=== PATIENT | female | born 1985 | race Caucasian/White ===

== ENCOUNTER 2016-10-24 18:34 | Inpatient (IN) | payer OTHER ==
[~2016-10-24] VITALS: Ht 162.6 cm; Wt 62.2 kg
[~2016-10-24 18:34] MED LIST: APIDRA100 UNIT/1 SQ
[2016-10-24 20:43] LABS: HEMATOCRIT 30.5 % (36.0-46.0); MCH 27.4 PG (29.0-34.0); MCHC 33.1 G/DL (30.0-36.0); MCV 82.7 FL (83-99); MEAN PLAT.VOLUME 10.1 uM^3 (9.5-12.4); PLATELET COUNT 334 K/uL (156-360); RBC DIS.WIDTH-CV 12.4 % (11.8-14.6); RBC DIS.WIDTH-SD 37.4 % (39-53); RED BLOOD COUNT 3.69 M/uL (3.80-5.20); WHITE BLOOD COUNT 8.5 K/uL (4.1-10.2)
[2016-10-24 20:59] LABS: CHLORIDE 95 mEq/L (99-109); POTASSIUM 3.1 mEq/L (3.7-5.4); SODIUM 131 mEq/L (136-147)
[2016-10-24 21:00] LABS: GLUCOSE 290 mg/dL (70-99)
[2016-10-24 21:02] LABS: ANION GAP 14 MEQ/L (2-14)
[2016-10-24 21:04] LABS: GFR ESTIMATE (CALCULATED) 18 mL/min/
[2016-10-24 21:05] LABS: UREA NITROGEN (BUN) 39 mg/dL (9-23)
[2016-10-24 22:08] LABS: TOTAL BILIRUBIN 0.5 mg/dL (0.0-1.0)
[2016-10-24 22:09] LABS: ALKALINE PHOSPHATASE 302 IU/L (3-129)
[2016-10-24 22:12] LABS: DIRECT BILIRUBIN 0.2 mg/dL (0.0-0.3)
[2016-10-24] MEDS ORDERED: NOVOLIN,HU100 UNITS1 SC (22:32)
[2016-10-24] MEDS ORDERED: ZYRTEC10 M2 PO (22:33)
[2016-10-24 23:08] LABS: POINT-OF-CARE METER ID UU13113800
[2016-10-24 23:24] LABS: ADD MIUA? YES; BILIRUBIN NEGATIVE; BLOOD SMALL; COLOR STRAW ((YELLOW)); GLUCOSE (STRIP) 150; KETONES NEGATIVE; LEUKOCYTES TRACE; NITRITE NEGATIVE; PROTEIN (STRIP) 30; SPECIFIC GRAVITY 1.006 (1.000-1.030); UROBILINOGEN 0.2 MG/DL (0.2-1.0)
[2016-10-24 23:35] LABS: BACTERIA RARE /HPF; EPITHELIAL CELLS RARE /HPF; HYALINE CASTS 0-5 /LPF; MUCUS NONE SEEN /LPF; RED BLOOD CELLS 0-5 /HPF (0-5); UCUL ADDED? NO
[2016-10-25] VITALS (9 sets, daily range): BP systolic 110–212; BP diastolic 60–103
[2016-10-25 05:42] LABS: HEMATOCRIT 28.2 % (36.0-46.0); MCH 28.4 PG (29.0-34.0); MCHC 33.7 G/DL (30.0-36.0); MCV 84.4 FL (83-99); MEAN PLAT.VOLUME 10.9 uM^3 (9.5-12.4); PLATELET COUNT 271 K/uL (156-360); RBC DIS.WIDTH-CV 12.8 % (11.8-14.6); RBC DIS.WIDTH-SD 38.5 % (39-53); RED BLOOD COUNT 3.34 M/uL (3.80-5.20); WHITE BLOOD COUNT 8.3 K/uL (4.1-10.2)
[2016-10-25 06:56] LABS: ANION GAP 11 MEQ/L (2-14); CHLORIDE 99 MEQ/L (99-109); GLUCOSE 178 mg/dL (70-99); POTASSIUM 3.7 MEQ/L (3.7-5.4); SAMPLE HEMOLYSIS CHECK 2; SAMPLE ICTERIC CHECK 0; SAMPLE LIPEMIA CHECK 0; SODIUM 130 MEQ/L (136-147); UREA NITROGEN (BUN) 33 mg/dL (9-23)
[2016-10-25 06:58] LABS: GFR ESTIMATE (CALCULATED) 22 mL/min/
[2016-10-25 07:56] LABS: INTACT PARATHYROID HORMONE 8 pg/mL (10-69)
[2016-10-25 08:20] LABS: POTASSIUM 3.7 MEQ/L (3.7-5.4)
[2016-10-25 08:41] LABS: POINT-OF-CARE METER ID UU13113698; POINT-OF-CARE USER ID NUTSLF44
[2016-10-25 11:36] LABS: POINT-OF-CARE METER ID UU13113698; POINT-OF-CARE USER ID NUTSLF44
[2016-10-25 13:03] LABS: C3 COMPLEMENT 181 MG/DL (58-170); C4 COMPLEMENT 40 MG/DL (10-40)
[2016-10-25 13:09] LABS: HIV INDEX 0.15; HIV-1/2 AB/AG COMBO Nonreactive; HPCA INDEX 0.15
[2016-10-25 13:22] LABS: ANTI-HEPATITIS A VIRUS (IGM) Nonreactive; HAV INDEX 0.13; HPCA INDEX 0.15
[2016-10-25 13:23] LABS: ANTI-HEPATITIS B CORE (IGM) Nonreactive; HBC IgM INDEX 0.11
[2016-10-25 15:20] LABS: URINE TOTAL PROTEIN 15 MG/DL (0-10)
[2016-10-25 15:59] LABS: COMMENT (LAB VIEW ONLY) ND; UR CALCIUM CONCENTRATION ND MG/DL; URINE CHEM COMMENT ND
[2016-10-25 17:20] LABS: Estimated Average Glucose 246 mg/dL (70-123); HEMOGLOBIN A1c (GLYCOHEMOGLOB) 10.2 % HGB (Below 5.7)
[2016-10-25 18:35] LABS: POINT-OF-CARE USER ID NUTSLF44
[2016-10-26 03:17] VITALS: BP 127/67
[2016-10-26 05:02] LABS: BASOPHIL COUNT 0.1 K/uL (0-0.1); EOSINOPHIL (%) 3.5 % (0-5); EOSINOPHIL COUNT 0.3 K/uL (0-0.3); HEMATOCRIT 26.5 % (36.0-46.0); IMMATURE GRANULOCYTE (%) 0.7 % (0.0-0.7); IMMATURE GRANULOCYTE COUNT 0.1 K/uL; LYMPHOCYTE COUNT 0.9 K/uL (1.0-2.8); MCH 27.7 PG (29.0-34.0); MCHC 32.5 G/DL (30.0-36.0); MCV 85.2 FL (83-99); MEAN PLAT.VOLUME 10.5 uM^3 (9.5-12.4); MONOCYTE (%) 5.5 % (3-12); MONOCYTE COUNT 0.4 K/uL (0-0.8); NEUTROPHIL (%) 78.1 % (45-76); PLATELET COUNT 290 K/uL (156-360); RBC DIS.WIDTH-SD 39.8 % (39-53); RED BLOOD COUNT 3.11 M/uL (3.80-5.20); WHITE BLOOD COUNT 7.7 K/uL (4.1-10.2)
[2016-10-26 05:58] LABS: ALKALINE PHOSPHATASE 240 IU/L (3-129); ANION GAP 14 MEQ/L (2-14); CHLORIDE 102 MEQ/L (99-109); GFR ESTIMATE (CALCULATED) 26 mL/min/; IRON 17 MCG/DL (35-150); SAMPLE HEMOLYSIS CHECK 0; SAMPLE ICTERIC CHECK 0; SAMPLE LIPEMIA CHECK 0; SODIUM 134 MEQ/L (136-147); TOTAL BILIRUBIN 0.6 MG/DL (0.0-1.0); UREA NITROGEN (BUN) 29 mg/dL (9-23)
[2016-10-26 06:01] LABS: GLUCOSE 424 mg/dL (70-99)
[2016-10-26 06:54] VITALS: BP 136/68
[2016-10-26 07:38] LABS: URIC ACID 9.2 mg/dL (3.1-9.2)
[2016-10-26 10:58] LABS: UR CALCIUM CONCENTRATION 11.8 MG/DL
[2016-10-26 11:03] LABS: UR CREATININE CONCENTRATION 33.8 MG/DL
[2016-10-26 11:19] LABS: POINT-OF-CARE METER ID UU13113781
[2016-10-26 12:19] VITALS: BP 121/70
[2016-10-26 12:23] LABS: FERRITIN 304 NG/ML (10-291)
[2016-10-26 15:44] LABS: ANION GAP 9 MEQ/L (2-14); CHLORIDE 103 MEQ/L (99-109); GFR ESTIMATE (CALCULATED) 27 mL/min/; GLUCOSE 301 mg/dL (70-99); POTASSIUM 3.5 MEQ/L (3.7-5.4); SAMPLE HEMOLYSIS CHECK 0; SAMPLE ICTERIC CHECK 0; SAMPLE LIPEMIA CHECK 0; SODIUM 134 MEQ/L (136-147); UREA NITROGEN (BUN) 34 mg/dL (9-23)
[2016-10-26 15:55] LABS: POINT-OF-CARE METER ID UU13113781
[2016-10-26 16:01] VITALS: BP 105/66
[2016-10-26 20:18] VITALS: BP 118/76
[2016-10-26 23:18] VITALS: BP 113/70
[2016-10-27 03:32] VITALS: BP 117/73
[2016-10-27 06:03] LABS: EOSINOPHIL (%) 3.6 % (0-5); EOSINOPHIL COUNT 0.5 K/uL (0-0.3); HEMATOCRIT 26.7 % (36.0-46.0); IMMATURE GRANULOCYTE (%) 0.8 % (0.0-0.7); IMMATURE GRANULOCYTE COUNT 0.1 K/uL; INSTRUMENT ABS NEUTROPHIL CT 10.3 K/uL; LYMPHOCYTE COUNT 1.1 K/uL (1.0-2.8); MCH 28.9 PG (29.0-34.0); MCHC 33.3 G/DL (30.0-36.0); MCV 86.7 FL (83-99); MEAN PLAT.VOLUME 10.2 uM^3 (9.5-12.4); MONOCYTE (%) 6.4 % (3-12); MONOCYTE COUNT 0.8 K/uL (0-0.8); NEUTROPHIL (%) 80.2 % (45-76); NEUTROPHIL COUNT 10.3 K/uL (1.8-6.4); PLATELET COUNT 332 K/uL (156-360); RBC DIS.WIDTH-CV 13.6 % (11.8-14.6); RBC DIS.WIDTH-SD 41.8 % (39-53); RED BLOOD COUNT 3.08 M/uL (3.80-5.20); WHITE BLOOD COUNT 12.9 K/uL (4.1-10.2)
[2016-10-27 06:35] LABS: ALKALINE PHOSPHATASE 203 IU/L (3-129); ANION GAP 9 MEQ/L (2-14); CHLORIDE 109 MEQ/L (99-109); GFR ESTIMATE (CALCULATED) 25 mL/min/; GLUCOSE 182 mg/dL (70-99); MAGNESIUM 1.3 mg/dl (1.3-2.7); POTASSIUM 4.1 MEQ/L (3.7-5.4); SAMPLE HEMOLYSIS CHECK 0; SAMPLE ICTERIC CHECK 0; SAMPLE LIPEMIA CHECK 0; SODIUM 138 MEQ/L (136-147); UREA NITROGEN (BUN) 32 mg/dL (9-23)
[2016-10-27 06:38] LABS: TOTAL BILIRUBIN 0.4 MG/DL (0.0-1.0)
[2016-10-27 08:45] LABS: INTER. NORMALIZED RATIO 1.1; PROTHROMBIN TIME 11.9 SEC (10.2-12.9)
[2016-10-27 08:48] LABS: PTT 31.4 SEC (25-37)
[2016-10-27 10:40] VITALS: BP 124/74
[2016-10-27 11:33] LABS: POINT-OF-CARE METER ID UU13113781
[2016-10-27 15:54] VITALS: BP 119/77
[2016-10-27 16:27] LABS: POINT-OF-CARE METER ID UU13113781
[2016-10-27 19:20] VITALS: BP 141/76
[2016-10-27 23:00] VITALS: BP 139/75
[2016-10-28 03:30] VITALS: BP 111/71
[2016-10-28 06:34] LABS: EOSINOPHIL (%) 2.8 % (0-5); EOSINOPHIL COUNT 0.2 K/uL (0-0.3); HEMATOCRIT 25.4 % (36.0-46.0); IMMATURE GRANULOCYTE (%) 0.6 % (0.0-0.7); IMMATURE GRANULOCYTE COUNT 0.1 K/uL; INSTRUMENT ABS NEUTROPHIL CT 6.5 K/uL; LYMPHOCYTE COUNT 0.9 K/uL (1.0-2.8); MCH 27.6 PG (29.0-34.0); MCHC 31.5 G/DL (30.0-36.0); MCV 87.6 FL (83-99); MEAN PLAT.VOLUME 10.2 uM^3 (9.5-12.4); MONOCYTE (%) 9.3 % (3-12); MONOCYTE COUNT 0.8 K/uL (0-0.8); NEUTROPHIL (%) 76.6 % (45-76); NEUTROPHIL COUNT 6.5 K/uL (1.8-6.4); PLATELET COUNT 302 K/uL (156-360); RBC DIS.WIDTH-CV 13.3 % (11.8-14.6); RBC DIS.WIDTH-SD 42.9 % (39-53); WHITE BLOOD COUNT 8.5 K/uL (4.1-10.2)
[2016-10-28 07:07] LABS: ANION GAP 7 MEQ/L (2-14); CHLORIDE 107 MEQ/L (99-109); GFR ESTIMATE (CALCULATED) 29 mL/min/; GLUCOSE 69 mg/dL (70-99); POTASSIUM 3.9 MEQ/L (3.7-5.4); SAMPLE HEMOLYSIS CHECK 0; SAMPLE ICTERIC CHECK 0; SAMPLE LIPEMIA CHECK 0; SODIUM 135 MEQ/L (136-147); UREA NITROGEN (BUN) 35 mg/dL (9-23)
[2016-10-28 08:01] LABS: POINT-OF-CARE USER ID NUTSLF44
[2016-10-28 08:02] VITALS: BP 161/91
[2016-10-28 11:25] LABS: POINT-OF-CARE USER ID NUTSLF44
[2016-10-28 11:54] VITALS: BP 144/85
[2016-10-28 16:26] VITALS: BP 106/58; BP 146/72
[2016-10-28 17:10] LABS: POINT-OF-CARE USER ID NUTSLF44
[2016-10-28 20:45] VITALS: BP 149/87
[2016-10-28 23:20] VITALS: BP 126/83
[2016-10-29 05:00] VITALS: BP 124/75
[2016-10-29 05:45] LABS: BASOPHIL COUNT 0.1 K/uL (0-0.1); EOSINOPHIL (%) 5.1 % (0-5); EOSINOPHIL COUNT 0.4 K/uL (0-0.3); HEMATOCRIT 24.9 % (36.0-46.0); IMMATURE GRANULOCYTE (%) 0.5 % (0.0-0.7); INSTRUMENT ABS NEUTROPHIL CT 5.5 K/uL; LYMPHOCYTE COUNT 1.3 K/uL (1.0-2.8); MCH 27.1 PG (29.0-34.0); MCHC 31.3 G/DL (30.0-36.0); MCV 86.5 FL (83-99); MEAN PLAT.VOLUME 10.6 uM^3 (9.5-12.4); MONOCYTE COUNT 0.9 K/uL (0-0.8); NEUTROPHIL (%) 66.6 % (45-76); NEUTROPHIL COUNT 5.5 K/uL (1.8-6.4); PLATELET COUNT 311 K/uL (156-360); RBC DIS.WIDTH-CV 13.1 % (11.8-14.6); RBC DIS.WIDTH-SD 41.1 % (39-53); RED BLOOD COUNT 2.88 M/uL (3.80-5.20); WHITE BLOOD COUNT 8.2 K/uL (4.1-10.2)
[2016-10-29 06:13] LABS: ALKALINE PHOSPHATASE 189 IU/L (3-129); ANION GAP 7 MEQ/L (2-14); CHLORIDE 105 MEQ/L (99-109); GFR ESTIMATE (CALCULATED) 29 mL/min/; GLUCOSE 81 mg/dL (70-99); POTASSIUM 3.6 MEQ/L (3.7-5.4); SAMPLE HEMOLYSIS CHECK 0; SAMPLE ICTERIC CHECK 0; SAMPLE LIPEMIA CHECK 0; SODIUM 131 MEQ/L (136-147); TOTAL BILIRUBIN 0.4 MG/DL (0.0-1.0); UREA NITROGEN (BUN) 30 mg/dL (9-23)
[2016-10-29 08:05] VITALS: BP 138/65
[2016-10-29 08:59] LABS: GLUCOSE 21 mg/dL (70-99)
[2016-10-29 12:02] VITALS: BP 128/92
[2016-10-29 12:41] LABS: Flow Clinical Information R/O LYMPHOMA (()); Flow Number of Markers 22 (()); Flow Spec Viability 97 % (()); Flow Specimen Type PERIPHERAL BLOOD (())
[2016-10-29 15:12] LABS: Flow Number of Markers 22 (()); Flow Spec Viability 35 % (())
[2016-10-29 15:55] VITALS: BP 133/74
[2016-10-29 18:27] LABS: ANION GAP 8 MEQ/L (2-14); CHLORIDE 104 MEQ/L (99-109); GFR ESTIMATE (CALCULATED) 31 mL/min/; GLUCOSE 114 mg/dL (70-99); POTASSIUM 4.4 MEQ/L (3.7-5.4); SAMPLE HEMOLYSIS CHECK 0; SAMPLE ICTERIC CHECK 0; SAMPLE LIPEMIA CHECK 0; SODIUM 129 MEQ/L (136-147); UREA NITROGEN (BUN) 29 mg/dL (9-23)
[2016-10-29 20:14] VITALS: BP 132/78
[2016-10-29 22:21] LABS: POINT-OF-CARE METER ID UU13113781; POINT-OF-CARE USER ID AHSUCEG
[2016-10-29 23:36] LABS: POINT-OF-CARE METER ID UU13113698
[2016-10-30] VITALS (7 sets, daily range): BP systolic 124–158; BP diastolic 73–87
[2016-10-30 06:15] LABS: BASOPHIL COUNT 0.1 K/uL (0-0.1); EOSINOPHIL (%) 4.9 % (0-5); EOSINOPHIL COUNT 0.4 K/uL (0-0.3); HEMATOCRIT 25.8 % (36.0-46.0); IMMATURE GRANULOCYTE (%) 0.5 % (0.0-0.7); INSTRUMENT ABS NEUTROPHIL CT 5.8 K/uL; LYMPHOCYTE COUNT 1.3 K/uL (1.0-2.8); MCH 27.6 PG (29.0-34.0); MCHC 32.2 G/DL (30.0-36.0); MCV 85.7 FL (83-99); MEAN PLAT.VOLUME 10.6 uM^3 (9.5-12.4); MONOCYTE (%) 9.2 % (3-12); MONOCYTE COUNT 0.8 K/uL (0-0.8); NEUTROPHIL (%) 69.3 % (45-76); NEUTROPHIL COUNT 5.8 K/uL (1.8-6.4); PLATELET COUNT 327 K/uL (156-360); RBC DIS.WIDTH-CV 13.1 % (11.8-14.6); RBC DIS.WIDTH-SD 40.6 % (39-53); RED BLOOD COUNT 3.01 M/uL (3.80-5.20); WHITE BLOOD COUNT 8.3 K/uL (4.1-10.2)
[2016-10-30 07:18] LABS: ANION GAP 10 MEQ/L (2-14); CHLORIDE 104 MEQ/L (99-109); GFR ESTIMATE (CALCULATED) 33 mL/min/; POTASSIUM 4.4 MEQ/L (3.7-5.4); SAMPLE HEMOLYSIS CHECK 0; SAMPLE ICTERIC CHECK 0; SAMPLE LIPEMIA CHECK 0; SODIUM 131 MEQ/L (136-147); UREA NITROGEN (BUN) 26 mg/dL (9-23)
[2016-10-30 07:19] LABS: GLUCOSE 196 mg/dL (70-99)
[2016-10-30 20:00] LABS: ANION GAP 11 MEQ/L (2-14); CHLORIDE 99 MEQ/L (99-109); POTASSIUM 4.4 MEQ/L (3.7-5.4); SAMPLE HEMOLYSIS CHECK 0; SAMPLE ICTERIC CHECK 0; SAMPLE LIPEMIA CHECK 0; SODIUM 125 MEQ/L (136-147)
[2016-10-30 20:27] LABS: GFR ESTIMATE (CALCULATED) 33 mL/min/; UREA NITROGEN (BUN) 28 mg/dL (9-23)
[2016-10-30 20:28] LABS: GLUCOSE 467 mg/dL (70-99)
[2016-10-31 03:48] VITALS: BP 126/81
[2016-10-31 06:06] LABS: EOSINOPHIL (%) 3.4 % (0-5); EOSINOPHIL COUNT 0.3 K/uL (0-0.3); HEMATOCRIT 24.4 % (36.0-46.0); IMMATURE GRANULOCYTE (%) 0.7 % (0.0-0.7); IMMATURE GRANULOCYTE COUNT 0.1 K/uL; INSTRUMENT ABS NEUTROPHIL CT 6.5 K/uL; LYMPHOCYTE COUNT 1.2 K/uL (1.0-2.8); MCH 27.4 PG (29.0-34.0); MCHC 32.8 G/DL (30.0-36.0); MCV 83.6 FL (83-99); MEAN PLAT.VOLUME 10.5 uM^3 (9.5-12.4); MONOCYTE (%) 10.1 % (3-12); MONOCYTE COUNT 0.9 K/uL (0-0.8); NEUTROPHIL (%) 72.4 % (45-76); NEUTROPHIL COUNT 6.5 K/uL (1.8-6.4); PLATELET COUNT 344 K/uL (156-360); RBC DIS.WIDTH-CV 13.1 % (11.8-14.6); RBC DIS.WIDTH-SD 39.4 % (39-53); RED BLOOD COUNT 2.92 M/uL (3.80-5.20); WHITE BLOOD COUNT 8.9 K/uL (4.1-10.2)
[2016-10-31 06:32] LABS: ANION GAP 9 MEQ/L (2-14); CHLORIDE 102 MEQ/L (99-109); GFR ESTIMATE (CALCULATED) 29 mL/min/; SAMPLE HEMOLYSIS CHECK 0; SAMPLE ICTERIC CHECK 0; SAMPLE LIPEMIA CHECK 0; SODIUM 131 MEQ/L (136-147); UREA NITROGEN (BUN) 26 mg/dL (9-23)
[2016-10-31 06:33] LABS: GLUCOSE 71 mg/dL (70-99)
[2016-10-31 06:49] VITALS: BP 122/77
[2016-10-31 11:00] VITALS: BP 124/75
[2016-10-31 11:41] LABS: C DIFF TOXIN NEGATIVE (NEGATIVE)
[2016-10-31 11:42] LABS: PROBE CHECK PASS; SPECIMEN PROCESSING CONTROL PASS
[2016-10-31] MEDS ORDERED: PREDNISONE20 MG PO (12:39)
[2016-10-31] MEDS ORDERED: CARVEDILOL12.5 MG PO (12:39)
[2016-10-31] MEDS ORDERED: NIFEDIPINE ER30 MG PO (12:39)
[2016-10-31] MEDS ORDERED: LEVEMIR100 UNIT/2 SC (12:40)
[2016-10-31] MEDS ORDERED: NOVOLIN,HU100 UNITS1 SC (12:41)
[2016-10-31] MEDS ORDERED: ONE TOUCH LANC1 EACH MC (12:42)
[2016-10-31] MEDS ORDERED: INSULIN SYRING1 EA11 MC (12:43)
[2016-10-31] MEDS ORDERED: TEST STRIPS MC (12:43)
[2016-10-31 22:54] LABS: Neutrophil Cytoplasmic Aby Negative (Negative)
[2016-11-01 15:02] LABS: IFE GEL NO. CAPI
== END 2016-10-31 14:38 | disposition home or self-care (01) | DRG 683 ==
LOC: EME 18:34 → 5EAST 22:58 → EDOF 22:58 → 4EAST 22:58 → 5EAST 10-29 22:48
PROVIDERS: Hospitalist; Internal Medicine; Internal Medicine Nephrology; Physician Assistant; Physician Assistant Medical; Radiology Diagnostic Radiology
DX: N17.9 Acute kidney failure, unspecified (principal); E83.52 Hypercalcemia; E10.22 Type 1 diabetes mellitus with diabetic chronic kidney disease; E10.649 Type 1 diabetes mellitus with hypoglycemia without coma; D71 Functional disorders of polymorphonuclear neutrophils; R18.8 Other ascites; E10.65 Type 1 diabetes mellitus with hyperglycemia; F17.200 Nicotine dependence, unspecified, uncomplicated; E87.1 Hypo-osmolality and hyponatremia; N18.9 Chronic kidney disease, unspecified; I12.9 Hypertensive chronic kidney disease with stage 1 through stage 4 chronic kidney disease, or unspecified chronic kidney disease; E87.6 Hypokalemia; D64.9 Anemia, unspecified; E86.0 Dehydration; J32.0 Chronic maxillary sinusitis; I34.1 Nonrheumatic mitral (valve) prolapse; K59.00 Constipation, unspecified; I16.1 Hypertensive emergency; R63.4 Abnormal weight loss; Z79.4 Long term (current) use of insulin
CPT/HCPCS: 70490; 71250; 74176; 74181; 76770; 76942; 80048; 80048 91; 80053; 80069; 80074; 80076; 81003; 81050; 82164 90; 82306; 82308 90; 82330; 82340; 82533 91; 82570; 82607; 82652; 82728; 82746; 82948; 83036; 83519 90; 83540; 83735; 83935; 83970; 84100; 84156; 84300; 84439; 84443; 84466; 84550; 84999; 85025; 85027; 85610; 85730; 86021 90; 86038; 86160; 86335; 86703; 86803; 87070; 87075; 87205; 87493; 88184 90; 88185 90; 88189 90; 88307; 88312; 93005; 99281; 99284; J0360; J0630; J1650; J1815; J1940; J2405; J2765; J3010; J3480; J3489; J7030; J7512

== ENCOUNTER 2016-11-23 14:45 | Inpatient (IN) | payer OTHER ==
[~2016-11-23] VITALS: Ht 162.6 cm; Wt 78.2 kg
[~2016-11-23 14:45] MED LIST changes: +CARVEDILOL12.5 MG PO; +INSULIN SYRING1 EA11 MC; +LEVEMIR100 UNIT/2 SC; +NIFEDIPINE ER30 MG PO; +NOVOLIN,HU100 UNITS1 SC; +ONE TOUCH LANC1 EACH MC; +PREDNISONE20 MG PO; +TEST STRIPS MC; +ZYRTEC10 M2 PO
[2016-11-23 15:51] LABS: HEMATOCRIT 26.5 % (36.0-46.0); MCH 27.9 PG (29.0-34.0); MCHC 30.9 G/DL (30.0-36.0); MCV 90.1 FL (83-99); RBC DIS.WIDTH-CV 13.3 % (11.8-14.6); RBC DIS.WIDTH-SD 44.6 % (39-53); RED BLOOD COUNT 2.94 M/uL (3.80-5.20); WHITE BLOOD COUNT 10.5 K/uL (4.1-10.2)
[2016-11-23 15:54] LABS: CHLORIDE 100 mEq/L (99-109); POTASSIUM 4.6 mEq/L (3.7-5.4); SODIUM 131 mEq/L (136-147)
[2016-11-23 15:56] LABS: GLUCOSE 355 mg/dL (70-99)
[2016-11-23 15:57] LABS: ANION GAP 13 MEQ/L (2-14)
[2016-11-23 15:58] LABS: TOTAL BILIRUBIN 0.5 mg/dL (0.0-1.0)
[2016-11-23 16:00] LABS: ALKALINE PHOSPHATASE 141 IU/L (3-129); GFR ESTIMATE (CALCULATED) 25 mL/min/
[2016-11-23 16:01] LABS: UREA NITROGEN (BUN) 72 mg/dL (9-23)
[2016-11-23 16:03] LABS: LIPASE 355 U/L (1.0-51.0)
[2016-11-23 16:11] LABS: QUANTITATIVE HCG < 4.0 MIU/ML
[2016-11-23 16:25] LABS: MEAN PLAT.VOLUME 10.5 uM^3 (9.5-12.4); PLAT.SUFFICIENCY ADEQUATE
[2016-11-23 16:39] LABS: PLATELET COUNT 241 K/uL (156-360)
[2016-11-23 18:53] LABS: ADD MIUA? NO; BILIRUBIN NEGATIVE; BLOOD NEGATIVE; COLOR STRAW ((YELLOW)); GLUCOSE (STRIP) >=500; KETONES NEGATIVE; LEUKOCYTES NEGATIVE; NITRITE NEGATIVE; PROTEIN (STRIP) NEGATIVE; SPECIFIC GRAVITY 1.009 (1.000-1.030); UCUL ADDED? NO; UROBILINOGEN 0.2 MG/DL (0.2-1.0)
[2016-11-23] MEDS ORDERED: GLUCAGON1 MG IM (20:22)
[2016-11-23] MEDS ORDERED: CARVEDILOL25 MG PO (20:22)
[2016-11-23] MEDS ORDERED: PRAVACHOL10 MG PO (20:23)
[2016-11-23] MEDS ORDERED: LEVEMIR100 UNIT/2 SC (20:23)
[2016-11-23] MEDS ORDERED: NOVOLOG 10100 UNITS/ SC (20:23)
[2016-11-23] MEDS ORDERED: BUMETANIDE1 MG PO (20:23)
[2016-11-23] MEDS ORDERED: DELTASONE20 M1 PO (20:23)
[2016-11-23] MEDS ORDERED: APRESOLINE25 MG PO (20:24)
[2016-11-23 21:46] VITALS: BP 139/80
[2016-11-23 23:20] LABS: POINT-OF-CARE METER ID UU14208750
[2016-11-24 03:30] VITALS: BP 123/74
[2016-11-24 06:32] LABS: POINT-OF-CARE METER ID UU14208750
[2016-11-24 07:46] VITALS: BP 123/74
[2016-11-24 11:13] VITALS: BP 123/75
[2016-11-24 11:46] LABS: POINT-OF-CARE METER ID UU14162508
[2016-11-24 12:08] LABS: EOSINOPHIL COUNT 0.1 K/uL (0-0.3); HEMATOCRIT 25.6 % (36.0-46.0); IMMATURE GRANULOCYTE COUNT 0.1 K/uL; INSTRUMENT ABS NEUTROPHIL CT 8.2 K/uL; LYMPHOCYTE COUNT 0.7 K/uL (1.0-2.8); MCH 28.7 PG (29.0-34.0); MCHC 30.9 G/DL (30.0-36.0); MCV 93.1 FL (83-99); MEAN PLAT.VOLUME 10.6 uM^3 (9.5-12.4); MONOCYTE (%) 4.8 % (3-12); MONOCYTE COUNT 0.5 K/uL (0-0.8); NEUTROPHIL (%) 86.1 % (45-76); NEUTROPHIL COUNT 8.2 K/uL (1.8-6.4); PLATELET COUNT 176 K/uL (156-360); RBC DIS.WIDTH-CV 13.7 % (11.8-14.6); RBC DIS.WIDTH-SD 46.7 % (39-53); RED BLOOD COUNT 2.75 M/uL (3.80-5.20); WHITE BLOOD COUNT 9.5 K/uL (4.1-10.2)
[2016-11-24 13:33] LABS: ALKALINE PHOSPHATASE 97 IU/L (3-129); ANION GAP 12 MEQ/L (2-14); CHLORIDE 103 MEQ/L (99-109); CREATINE KINASE 25 IU/L (1-294); GFR ESTIMATE (CALCULATED) 30 mL/min/; GLUCOSE 319 mg/dL (70-99); LIPASE 266 U/L (1.0-51.0); POTASSIUM 4.4 MEQ/L (3.7-5.4); SAMPLE HEMOLYSIS CHECK 0; SAMPLE ICTERIC CHECK 0; SAMPLE LIPEMIA CHECK 0; SODIUM 134 MEQ/L (136-147); TOTAL BILIRUBIN 0.4 MG/DL (0.0-1.0); UREA NITROGEN (BUN) 58 mg/dL (9-23)
[2016-11-24 13:46] LABS: UR CREATININE CONCENTRATION 20.8 MG/DL
[2016-11-24 16:29] VITALS: BP 119/77
[2016-11-24 16:47] LABS: POINT-OF-CARE METER ID UU14162508
[2016-11-24 20:26] VITALS: BP 149/80
[2016-11-25 00:48] VITALS: BP 149/81
[2016-11-25 04:23] VITALS: BP 121/70
[2016-11-25 06:35] LABS: POINT-OF-CARE METER ID UU14208750
[2016-11-25 07:50] LABS: HEMATOCRIT 25.9 % (36.0-46.0); MCH 27.8 PG (29.0-34.0); MCHC 30.9 G/DL (30.0-36.0); MCV 89.9 FL (83-99); MEAN PLAT.VOLUME 10.2 uM^3 (9.5-12.4); PLATELET COUNT 193 K/uL (156-360); RBC DIS.WIDTH-CV 13.3 % (11.8-14.6); RED BLOOD COUNT 2.88 M/uL (3.80-5.20); WHITE BLOOD COUNT 9.5 K/uL (4.1-10.2)
[2016-11-25 08:00] VITALS: BP 154/94
[2016-11-25 08:19] LABS: URIC ACID 8.9 mg/dL (3.1-9.2)
[2016-11-25 08:33] LABS: ALKALINE PHOSPHATASE 105 IU/L (3-129); ANION GAP 10 MEQ/L (2-14); CHLORIDE 102 MEQ/L (99-109); GFR ESTIMATE (CALCULATED) 26 mL/min/; GLUCOSE 292 mg/dL (70-99); POTASSIUM 4.2 MEQ/L (3.7-5.4); SAMPLE HEMOLYSIS CHECK 0; SAMPLE ICTERIC CHECK 0; SAMPLE LIPEMIA CHECK 0; SODIUM 135 MEQ/L (136-147); UREA NITROGEN (BUN) 66 mg/dL (9-23)
[2016-11-25 08:35] LABS: TOTAL BILIRUBIN 0.5 MG/DL (0.0-1.0)
[2016-11-25 11:45] VITALS: BP 122/84
[2016-11-25 12:01] LABS: POINT-OF-CARE METER ID UU14162508
[2016-11-25 15:45] VITALS: BP 143/84
[2016-11-25 20:34] VITALS: BP 148/81
[2016-11-26 00:41] VITALS: BP 118/64
[2016-11-26 00:48] VITALS: BP 114/54
[2016-11-26 00:50] VITALS: BP 118/64
[2016-11-26 04:22] VITALS: BP 129/72
[2016-11-26 06:25] LABS: POINT-OF-CARE METER ID UU14208750
[2016-11-26 07:17] VITALS: BP 140/84
[2016-11-26 07:17] LABS: HEMATOCRIT 25.2 % (36.0-46.0); MCH 28.7 PG (29.0-34.0); MCHC 31.7 G/DL (30.0-36.0); MCV 90.3 FL (83-99); MEAN PLAT.VOLUME 10.2 uM^3 (9.5-12.4); PLATELET COUNT 196 K/uL (156-360); RBC DIS.WIDTH-CV 13.4 % (11.8-14.6); RBC DIS.WIDTH-SD 44.8 % (39-53); RED BLOOD COUNT 2.79 M/uL (3.80-5.20); WHITE BLOOD COUNT 9.1 K/uL (4.1-10.2)
[2016-11-26 07:48] LABS: ALKALINE PHOSPHATASE 87 IU/L (3-129); ANION GAP 7 MEQ/L (2-14); CHLORIDE 102 MEQ/L (99-109); GFR ESTIMATE (CALCULATED) 25 mL/min/; POTASSIUM 4.1 MEQ/L (3.7-5.4); SAMPLE HEMOLYSIS CHECK 0; SAMPLE ICTERIC CHECK 0; SAMPLE LIPEMIA CHECK 0; SODIUM 136 MEQ/L (136-147); TOTAL BILIRUBIN 0.5 MG/DL (0.0-1.0); UREA NITROGEN (BUN) 59 mg/dL (9-23)
[2016-11-26 07:49] LABS: GLUCOSE 111 mg/dL (70-99)
[2016-11-26 11:41] LABS: POINT-OF-CARE METER ID UU14162508; POINT-OF-CARE USER ID PUTDRM
[2016-11-26 15:44] VITALS: BP 128/76
[2016-11-26 22:16] LABS: POINT-OF-CARE METER ID UU14208750
[2016-11-27 00:06] VITALS: BP 157/87
[2016-11-27 06:32] LABS: POINT-OF-CARE METER ID UU14208750
[2016-11-27 07:06] LABS: HEMATOCRIT 25.3 % (36.0-46.0); MCH 28.7 PG (29.0-34.0); MCHC 31.6 G/DL (30.0-36.0); MCV 90.7 FL (83-99); MEAN PLAT.VOLUME 10.3 uM^3 (9.5-12.4); PLATELET COUNT 205 K/uL (156-360); RBC DIS.WIDTH-CV 13.3 % (11.8-14.6); RBC DIS.WIDTH-SD 44.5 % (39-53); RED BLOOD COUNT 2.79 M/uL (3.80-5.20); WHITE BLOOD COUNT 7.5 K/uL (4.1-10.2)
[2016-11-27 07:15] VITALS: BP 130/89
[2016-11-27 07:32] LABS: ANION GAP 8 MEQ/L (2-14); CHLORIDE 100 MEQ/L (99-109); GFR ESTIMATE (CALCULATED) 25 mL/min/; GLUCOSE 86 mg/dL (70-99); POTASSIUM 4.1 MEQ/L (3.7-5.4); SAMPLE HEMOLYSIS CHECK 0; SAMPLE ICTERIC CHECK 0; SAMPLE LIPEMIA CHECK 0; SODIUM 139 MEQ/L (136-147); UREA NITROGEN (BUN) 61 mg/dL (9-23)
[2016-11-27 07:47] LABS: INTACT PARATHYROID HORMONE 302 pg/mL (10-69)
[2016-11-27 10:36] LABS: POINT-OF-CARE METER ID UU14162508
[2016-11-27 11:48] LABS: POINT-OF-CARE METER ID UU14162508
[2016-11-27 12:10] LABS: POINT-OF-CARE METER ID UU14162508
[2016-11-27 12:17] LABS: POINT-OF-CARE METER ID UU14162508
[2016-11-27 12:17] LABS: POINT-OF-CARE METER ID UU14208750
[2016-11-27 15:52] LABS: POINT-OF-CARE METER ID UU14162508
[2016-11-27 16:15] VITALS: BP 154/93
[2016-11-27] MEDS ORDERED: OYSTER SHELL 51 EACH PO (16:24)
[2016-11-27] MEDS ORDERED: BUMETANIDE1 MG PO (16:24)
[2016-11-27] MEDS ORDERED: PREDNISONE20 MG PO (16:25)
[2016-11-27] MEDS ORDERED: ERGOCALCIF50000 UNIT PO (16:26)
[2016-11-27] MEDS ORDERED: LEVEMIR100 UNIT/2 SC (16:26)
== END 2016-11-27 19:07 | disposition home or self-care (01) | DRG 683 ==
LOC: EME 14:45 → EDOF 19:47 → 2EAST 19:47 → ENRESERV 19:55 → 2EAST 21:28
PROVIDERS: Hospitalist; Internal Medicine Nephrology
DX: N17.9 Acute kidney failure, unspecified (principal); E10.22 Type 1 diabetes mellitus with diabetic chronic kidney disease; D86.9 Sarcoidosis, unspecified; E83.51 Hypocalcemia; E87.1 Hypo-osmolality and hyponatremia; I12.9 Hypertensive chronic kidney disease with stage 1 through stage 4 chronic kidney disease, or unspecified chronic kidney disease; N18.3 Chronic kidney disease, stage 3 (moderate); Z87.891 Personal history of nicotine dependence; E83.52 Hypercalcemia; D63.1 Anemia in chronic kidney disease; E10.65 Type 1 diabetes mellitus with hyperglycemia; E66.9 Obesity, unspecified; Z68.32 Body mass index [BMI] 32.0-32.9, adult; D71 Functional disorders of polymorphonuclear neutrophils
CPT/HCPCS: 36415; 71020; 74176; 76770; 80048; 80053; 80069; 81003; 82010; 82330; 82550; 82570; 82948; 83690; 83880; 83970; 84100; 84156; 84550; 84702; 85025; 85027; 86038; 93005; 93970; 99281; 99284; J0610; J1650; J1815; J1940; J7030; J7050; J7512